=== PATIENT | female | born 1990 | race Caucasian/White ===

== ENCOUNTER → 2021-12-30 | Outpatient (CLI) | payer OTHER ==
[2021-12-30 13:10] LABS: BASO % 0.3 % (0.0-1.0); EOS % 0.6 % (0.0-3.0); HEMATOCRIT 38.4 % (36.0-47.0); HEMOGLOBIN 13.2 g/dl (12.0-15.5); LYMPH # 1.5 10^3/uL (1.5-5.0); LYMPH % 20.6 % (24.0-44.0); MEAN CORPUSCULAR HEMOGLOBIN 31.5 pg (27.0-33.0); MEAN CORPUSCULAR HGB CONC 34.4 g/dl (32.0-36.5); MEAN CORPUSCULAR VOLUME 91.6 fl (80.0-96.0); MONO # 0.4 10^3/uL (0.0-0.8); MONO % 6.1 % (2.0-8.0); NEUTROPHILS # 5.2 10^3/uL (1.5-8.5); NEUTROPHILS % 72.1 % (36.0-66.0); PLATELET COUNT, AUTOMATED 246 10^3/uL (150-450); RED BLOOD COUNT 4.19 10^6/uL (4.00-5.40); WHITE BLOOD COUNT 7.2 10^3/uL (4.0-10.0)
[2021-12-30 14:39] LABS: HEPATITIS C VIRUS ABY INDEX < 0.0 INDEX (<0.8); HIV 1&2 SCREEN CENTAUR NEGATIVE (NEGATIVE)
[2021-12-30 15:11] LABS: GC DNA AMPLIFICATION NEGATIVE (NEGATIVE)
== END ==
LOC: M PLALAB 11:33
PROVIDERS: ATTEND Obstetrics & Gynecology
DX: Z36.89 Encounter for other specified antenatal screening (principal); Z3A.13 13 weeks gestation of pregnancy

== ENCOUNTER → 2022-01-03 | Outpatient (CLI) | payer OTHER | LOC: M PLALAB 11:17 | PROVIDERS: ATTEND Obstetrics & Gynecology | DX: Z34.81 Encounter for supervision of other normal pregnancy, first trimester (principal) ==

== ENCOUNTER → 2022-02-14 | Outpatient (CLI) | payer OTHER | LOC: M WHC 07:30 | PROVIDERS: ATTEND Obstetrics & Gynecology | DX: Z36.89 Encounter for other specified antenatal screening (principal); Z3A.19 19 weeks gestation of pregnancy ==

== ENCOUNTER → 2022-03-28 | Outpatient (CLI) | payer OTHER ==
[2022-03-28 13:44] LABS: HEMATOCRIT 37.4 % (36.0-47.0); HEMOGLOBIN 12.4 g/dl (12.0-15.5); MEAN CORPUSCULAR HEMOGLOBIN 31.3 pg (27.0-33.0); MEAN CORPUSCULAR HGB CONC 33.2 g/dl (32.0-36.5); MEAN CORPUSCULAR VOLUME 94.4 fl (80.0-96.0); PLATELET COUNT, AUTOMATED 242 10^3/uL (150-450); RED BLOOD COUNT 3.96 10^6/uL (4.00-5.40); WHITE BLOOD COUNT 7.6 10^3/uL (4.0-10.0)
[2022-03-28 14:52] LABS: GC DNA AMPLIFICATION NEGATIVE (NEGATIVE)
== END ==
LOC: M PLALAB 09:48
PROVIDERS: ATTEND Physician Assistant
DX: I48.3 Typical atrial flutter (principal)

== ENCOUNTER → 2022-06-12 | Outpatient (REF) | payer OTHER | LOC: M PLALAB 09:05 | PROVIDERS: ATTEND Advanced Practice Midwife | DX: Z34.03 Encounter for supervision of normal first pregnancy, third trimester (principal) ==

== ENCOUNTER 2022-07-10 23:08 | Inpatient (IN) | payer OTHER ==
[~2022-07-10] VITALS: Ht 165.1 cm; Wt 77.0 kg
[2022-07-10] MEDS ORDERED: PRENTAB9 PO (23:26)
[2022-07-10] MEDS ORDERED: ROBI1LIQ9 PO (23:26)
[2022-07-10] MEDS ORDERED: HOME MED LIST COMPLETE! XX SCH (23:30)
[2022-07-10 23:35] VITALS: BP 124/79
[2022-07-10] MEDS ORDERED: OXYTOCIN DRIP 30 UNITS in IV 1 EA IV PRN (23:55)
[2022-07-10] MEDS ORDERED: LIDOCAINE 1% MDV 20ML VIAL INFIL PRN (23:55)
[2022-07-11] VITALS (28 sets, daily range): BP systolic 109–158; BP diastolic 53–87
[2022-07-11] MEDS ORDERED: UNRESOLVED CLARIFICATION ENTRY XX STA (00:03)
[2022-07-11 00:41] LABS: HEMATOCRIT 33.2 % (36.0-47.0); HEMOGLOBIN 11.3 g/dl (12.0-15.5); MEAN CORPUSCULAR HEMOGLOBIN 31.2 pg (27.0-33.0); MEAN CORPUSCULAR VOLUME 91.7 fl (80.0-96.0); PLATELET COUNT, AUTOMATED 223 10^3/uL (150-450); RED BLOOD COUNT 3.62 10^6/uL (4.00-5.40); WHITE BLOOD COUNT 7.9 10^3/uL (4.0-10.0)
[2022-07-11] MEDS ORDERED: LR 1,000 ML IV SCH (05:55)
[2022-07-11] MEDS ORDERED: OXYTOCIN DRIP 30 UNITS in IV 1 EA IV SCH (05:55)
[2022-07-11] MEDS ORDERED: PROMETHAZINE 25MG/ML 1ML VIAL IV PRN (10:20)
[2022-07-11] MEDS ORDERED: BUTORPHANOL 2 MG/ML 1ML VIAL IV PRN (10:20)
[2022-07-11] MEDS ORDERED: DIBUCAINE 1% OINTMENT 30GM TOP PRN (17:35)
[2022-07-11] MEDS ORDERED: ACETAMINOPHEN 500 MG TAB PO PRN (17:35)
[2022-07-11] MEDS ORDERED: RHOGAM 300MCG (1500IU) INJ IM SCH (17:35)
[2022-07-11] MEDS ORDERED: ANUSOL HC CREAM 30GM TOP PRN (17:35)
[2022-07-11] MEDS ORDERED: MOM 30ML SUSPENSION UDC PO PRN (17:35)
[2022-07-11] MEDS ORDERED: METHYLERGONOVINE MALEATE 0.2MG/ML 1ML VIAL ONE (17:59)
[2022-07-11] MEDS: IBUPROFEN 600MG TAB PO PRN (18:24)
[2022-07-11] MEDS ORDERED: METHYLERGONOVINE MALEATE 0.2MG/ML 1ML VIAL IM STA (18:58)
[2022-07-11] MEDS: DOCUSATE SODIUM 100MG CAPSULE PO SCH (21:44)
[2022-07-11] MEDS: METHYLERGONOVINE MALEATE 0.2 MG TAB PO SCH (21:44)
[2022-07-12 02:00] VITALS: BP 125/75
[2022-07-12] MEDS: METHYLERGONOVINE MALEATE 0.2 MG TAB PO SCH ×4 (03:40→20:59)
[2022-07-12 05:30] VITALS: BP 111/66
[2022-07-12] MEDS: PRENATAL VITAMINS CHEWABLE TABLET PO SCH (08:52)
[2022-07-12] MEDS: DOCUSATE SODIUM 100MG CAPSULE PO SCH ×2 (08:52→20:59)
[2022-07-12] MEDS: IBUPROFEN 600MG TAB PO PRN ×2 (09:24→20:16)
[2022-07-12 18:00] VITALS: BP 123/64
[2022-07-13 05:37] VITALS: BP 108/60
[2022-07-13] MEDS: DOCUSATE SODIUM 100MG CAPSULE PO SCH (08:46)
[2022-07-13] MEDS: PRENATAL VITAMINS CHEWABLE TABLET PO SCH (08:46)
[2022-07-13] MEDS ORDERED: MEASLES,MUMPS,RUBELLA VACCINE INJ (MMR-II) SC.IMMUN ONE (09:00)
== END 2022-07-13 12:35 | disposition home or self-care (01) | DRG 560 ==
LOC: M LDO 23:08 → M LDI 23:49 → M OBS 07-11 19:17
PROVIDERS: ADMIT Specialist; ATTEND Specialist
PROC: 10E0XZZ Delivery of Products of Conception, External Approach (ICD-10-PCS; principal; 2022-07-11)
PROC: 0KQM0ZZ Repair Perineum Muscle, Open Approach (ICD-10-PCS; 2022-07-11)
DX: O48.0 Post-term pregnancy (principal); O32.6XX0 Maternal care for compound presentation, not applicable or unspecified; Z37.0 Single live birth; Z3A.40 40 weeks gestation of pregnancy; O70.1 Second degree perineal laceration during delivery

== ENCOUNTER → 2025-04-04 | Outpatient (REF) | payer OTHER ==
[~2025-04-04] MED LIST: PRENTAB9 PO; ROBI1LIQ9 PO
[2025-04-07 15:57] LABS: HPV APTIMA Not Detected (Not Detected)
== END ==
LOC: M SFHCWAGY 12:52
PROVIDERS: ATTEND Advanced Practice Midwife
DX: Z01.419 Encounter for gynecological examination (general) (routine) without abnormal findings (principal); Z12.31 Encounter for screening mammogram for malignant neoplasm of breast; Z11.51 Encounter for screening for human papillomavirus (HPV); Z88.0 Allergy status to penicillin; Z88.1 Allergy status to other antibiotic agents; Z88.2 Allergy status to sulfonamides